=== PATIENT | female | born 1930 | race African-American/Black ===

== ENCOUNTER 2019-03-05 13:01 | Inpatient (IN) | payer MEDICARE, BC ==
[~2019-03-05] VITALS: Ht 160 cm; Wt 52.2 kg
[~2019-03-05 13:01] MED LIST: ASPIRIN PO; ATENOLOL PO; BENAZEPRIL; CINACALCET; CITRIC ACID; CLONIDINE; DOCUSATE PO; FAMOTIDINE; FERROUS SULFATE; HYDRALAZINE PO; NEPHRO VITE PO; NIFEDIPINE; QUETIAPINE; VIT B
[2019-03-05] MEDS ORDERED: MORPHINE SULFATE 4 MG/ML CPJ (NOT FOR IM USE) IV STA (16:06)
[2019-03-05] MEDS ORDERED: SODIUM CHLORIDE 0.9% 1,000 ML IV ONE (16:06)
[2019-03-05] MEDS ORDERED: ONDANSETRON HCL 4MG/2ML INJ IV STA (16:06)
[2019-03-05 16:17] LABS: CLARITY URINE CLEAR (CLEAR); COLOR URINE YELLOW (YELLOW); KETONES URINE NEGATIVE (NEGATIVE); LEUKOCYTE ESTERASE URINE 3+ (NEGATIVE); NITRITE URINE NEGATIVE (NEGATIVE); OCCULT BLOOD URINE NEGATIVE (NEGATIVE); PH URINE 5.5 (4.5-8.0); PROTEIN URINE NEGATIVE (NEGATIVE); SPECIFIC GRAVITY URINE 1.007 (1.005-1.030); UROBILINOGEN URINE 0.2 E.U./dL (0.2-1.0)
[2019-03-05 16:42] LABS: HEMATOCRIT. 33.2 % (36.0-48.0); HEMOGLOBIN. 10.7 g/dL (12.0-16.0); MEAN CORPUSCULAR HEMOGLOBIN 25.7 pg (28.0-32.0); MEAN CORPUSCULAR VOLUME 79.7 fL (81.0-99.0); MEAN PLATELET VOLUME 8.6 fl (7.4-10.4); PLATELET 220 x1000/uL (130-400); RED BLOOD CELL COUNT 4.17 mill/uL (4.2-5.4); RED CELL DISTRIBUTION WIDTH 16.8 % (11.6-14.6)
[2019-03-05 16:46] LABS: CHLORIDE 111 mEq/L (98-107)
[2019-03-05] MEDS ORDERED: CEFTRIAXONE 1 G PREMIX 50 ML IV ONE (17:00)
[2019-03-05 17:48] LABS: PLATELET ESTIMATE NORMAL
[2019-03-05] MEDS ORDERED: ACETAMINOPHEN 325MG TABLET PO PRN (22:45)
[2019-03-05] MEDS ORDERED: CLONIDINE 0.1MG TABLET PO PRN (22:45)
[2019-03-05] MEDS ORDERED: DOCUSATE SODIUM 100MG CAPSULE PO PRN (22:45)
[2019-03-05] MEDS ORDERED: ONDANSETRON HCL 4MG/2ML INJ IV PRN (22:45)
[2019-03-05] MEDS ORDERED: MORPHINE SULFATE 2 MG/ML CPJ (NOT FOR IM USE) IV PRN (22:45)
[2019-03-05] MEDS ORDERED: MAGNESIUM/ALUMINUM HYDROXIDE/SIMETHICONE 30ML UDC PO PRN (22:45)
[2019-03-05] MEDS ORDERED: DIPHENHYDRAMINE 50MG/ML VIAL IV PRN (22:45)
[2019-03-06] VITALS (7 sets, daily range): BP systolic 121–163; BP diastolic 43–74
[2019-03-06] MEDS: PANTOPRAZOLE SODIUM 40 MG/VIAL IV SCH ×3 (00:13→13:00)
[2019-03-06 06:53] LABS: BASOPHILS % 0.7 % (0.0-2.0); EOSINOPHILS % 14.2 % (0.0-5.0); HEMATOCRIT. 28.2 % (36.0-48.0); HEMOGLOBIN. 9.1 g/dL (12.0-16.0); LYMPHOCYTES % 14.1 % (20.0-50.0); MEAN CORPUSCULAR VOLUME 80.6 fL (81.0-99.0); MEAN PLATELET VOLUME 8.8 fl (7.4-10.4); MONOCYTES % 7.8 % (2.0-8.0); NEUTROPHILS % 63.2 % (40.0-76.0); PLATELET 194 x1000/uL (130-400); RED BLOOD CELL COUNT 3.49 mill/uL (4.2-5.4); RED CELL DISTRIBUTION WIDTH 17.1 % (11.6-14.6)
[2019-03-06 08:07] LABS: CHLORIDE 113 mEq/L (98-107)
[2019-03-06] MEDS: AMLODIPINE 10MG TABLET PO SCH (09:00)
[2019-03-06] MEDS ORDERED: QUETIAPINE FUMARATE 25MG TABLET PO SCH (13:00)
[2019-03-06] MEDS ORDERED: CITR473S4 PO (13:19)
[2019-03-06] MEDS ORDERED: NON (13:19)
[2019-03-06] MEDS ORDERED: METO-396 PO (13:19)
[2019-03-06] MEDS ORDERED: FLUT15.88 BOTHNSTRLS (13:19)
[2019-03-06] MEDS ORDERED: CINA60 MT (13:19)
[2019-03-06] MEDS ORDERED: REN800 PO (13:19)
[2019-03-06] MEDS ORDERED: ASCO500C15 MT (13:19)
[2019-03-06] MEDS ORDERED: CALC-769 PO (13:19)
[2019-03-06] MEDS ORDERED: HYDR-4134 MT (13:19)
[2019-03-06] MEDS ORDERED: THIA50TA11 PO (13:19)
[2019-03-06] MEDS ORDERED: LACT1CAP68 PO (13:19)
[2019-03-06] MEDS ORDERED: QUET25TA PO (13:19)
[2019-03-06] MEDS ORDERED: AMLO2.5T45 PO (13:19)
[2019-03-06] MEDS ORDERED: OMEP40CA34 MT (13:19)
[2019-03-06] MEDS ORDERED: SYSOS BOTHEYE (13:19)
[2019-03-06] MEDS ORDERED: CEFTRIAXONE 1 G PREMIX 50 ML IV SCH ×2 (17:00→20:00)
[2019-03-06] MEDS: QUETIAPINE FUMARATE 25MG TABLET PO SCH (21:11)
[2019-03-06] MEDS: HYDRALAZINE HCL 25MG TABLET PO SCH (21:12)
[2019-03-07 00:15] VITALS: BP 141/49
[2019-03-07 04:00] VITALS: BP 138/51
[2019-03-07 06:14] LABS: CHLORIDE 106 mEq/L (98-107)
[2019-03-07 06:18] LABS: HEMATOCRIT. 27.3 % (36.0-48.0); MEAN CORPUSCULAR HEMOGLOBIN 25.9 pg (28.0-32.0); MEAN CORPUSCULAR VOLUME 78.4 fL (81.0-99.0); MEAN PLATELET VOLUME 8.7 fl (7.4-10.4); PLATELET 191 x1000/uL (130-400); RED BLOOD CELL COUNT 3.48 mill/uL (4.2-5.4); RED CELL DISTRIBUTION WIDTH 16.4 % (11.6-14.6)
[2019-03-07] MEDS: AMLODIPINE 10MG TABLET PO SCH (09:11)
[2019-03-07] MEDS: HYDRALAZINE HCL 25MG TABLET PO SCH (09:11)
[2019-03-07] MEDS: PANTOPRAZOLE SODIUM 40 MG/VIAL IV SCH (09:12)
[2019-03-07] MEDS: QUETIAPINE FUMARATE 25MG TABLET PO SCH (09:12)
[2019-03-07 13:19] LABS: PLATELET ESTIMATE NORMAL
[2019-03-07 13:37] VITALS: BP 132/74
== END 2019-03-07 16:28 | disposition home or self-care (01) | DRG 438 ==
LOC: ER 13:01 → 6WST 18:35 → ENRESERV 22:24 → SUPCPDRO 22:42
PROVIDERS: ADMIT Hospitalist; ATTEND Hospitalist
PROC: 5A1D70Z Performance of Urinary Filtration, Intermittent, Less than 6 Hours Per Day (ICD-10-PCS; principal; 2019-03-06)
DX: K85.90 Acute pancreatitis without necrosis or infection, unspecified (principal); I50.33 Acute on chronic diastolic (congestive) heart failure; N18.6 End stage renal disease; I13.2 Hypertensive heart and chronic kidney disease with heart failure and with stage 5 chronic kidney disease, or end stage renal disease; N39.0 Urinary tract infection, site not specified; E03.9 Hypothyroidism, unspecified; E21.3 Hyperparathyroidism, unspecified; Z85.3 Personal history of malignant neoplasm of breast; Z82.49 Family history of ischemic heart disease and other diseases of the circulatory system; Z85.828 Personal history of other malignant neoplasm of skin; Z88.8 Allergy status to other drugs, medicaments and biological substances; Z90.710 Acquired absence of both cervix and uterus; Z99.2 Dependence on renal dialysis; Z88.7 Allergy status to serum and vaccine; Z79.899 Other long term (current) drug therapy
CPT/HCPCS: 36415; 71045; 74176; 81003; 93005; 93970; 99285; C9113; J0696; J2270; J2405; J7030

== ENCOUNTER 2019-03-22 15:02 | Emergency (ER) | payer BC, MEDICARE ==
[~2019-03-22] VITALS: Ht 157.5 cm; Wt 50.0 kg
[~2019-03-22 15:02] MED LIST changes: +AMLO2.5T45 PO; +ASCO500C15 MT; -ATENOLOL PO; -BENAZEPRIL; +CALC-769 PO; +CINA60 MT; +CITR473S4 PO; -CITRIC ACID; -CLONIDINE; -FAMOTIDINE; -FERROUS SULFATE; +FLUT15.88 BOTHNSTRLS; +HYDR-4134 MT; +LACT1CAP68 PO; +METO-396 PO; -NEPHRO VITE PO; -NIFEDIPINE; +OMEP40CA34 MT; +QUET25TA PO; -QUETIAPINE; +REN800 PO; +SYSOS BOTHEYE; +THIA50TA11 PO; -VIT B
[2019-03-22 15:13] VITALS: BP 168/67
== END 2019-03-22 17:21 | disposition left against medical advice (07) ==
LOC: ER 15:02
DX: Z53.21 Procedure and treatment not carried out due to patient leaving prior to being seen by health care provider (principal)

== ENCOUNTER 2019-07-25 09:29 | Emergency (ER) | payer BC, MEDICARE ==
[~2019-07-25] VITALS: Ht 160 cm; Wt 59.0 kg
[~2019-07-25 09:29] MED LIST changes: +FLUT15.844 BOTHNSTRLS; -FLUT15.88 BOTHNSTRLS; +OMEP40CA12 MT; -OMEP40CA34 MT
[2019-07-25 11:36] VITALS: BP 143/64
== END 2019-07-25 11:39 | disposition home or self-care (01) ==
LOC: ER 09:29
DX: H10.023 Other mucopurulent conjunctivitis, bilateral (principal); I12.0 Hypertensive chronic kidney disease with stage 5 chronic kidney disease or end stage renal disease; N18.6 End stage renal disease; K21.9 Gastro-esophageal reflux disease without esophagitis; Z99.2 Dependence on renal dialysis; Z79.82 Long term (current) use of aspirin; Z88.7 Allergy status to serum and vaccine
CPT/HCPCS: 99282

== ENCOUNTER 2020-02-06 18:18 | Inpatient (IN) | payer MEDICARE, BC ==
[~2020-02-06] VITALS: Ht 157.5 cm; Wt 47.3 kg
[2020-02-06 19:30] VITALS: BP 145/55
[2020-02-06 20:00] VITALS: BP 144/50
[2020-02-06] MEDS ORDERED: HYDRALAZINE 25 MG PO SCH (20:00)
[2020-02-06] MEDS ORDERED: ACETAMINOPHEN 500MG TABLET PO PRN (20:45)
[2020-02-06] MEDS ORDERED: QUETIAPINE FUMARATE 25MG TABLET PO SCH (21:30)
[2020-02-06] MEDS: HYDRALAZINE HCL 25MG TABLET PO SCH (22:10)
[2020-02-06] MEDS: CARVEDILOL 12.5MG TABLET PO SCH (22:11)
[2020-02-07] VITALS (7 sets, daily range): BP systolic 95–165; BP diastolic 45–69
[2020-02-07 00:53] LABS: BASOPHILS % 0.5 % (0.0-2.0); EOSINOPHILS % 9.3 % (0.0-5.0); LYMPHOCYTES % 14.1 % (20.0-50.0); MEAN CORPUSCULAR HEMOGLOBIN 28.1 pg (28.0-32.0); MEAN CORPUSCULAR VOLUME 85.4 fL (81.0-99.0); MONOCYTES % 6.9 % (2.0-8.0); NEUTROPHILS % 69.2 % (40.0-76.0); PLATELET 187 x1000/uL (130-400); RED BLOOD CELL COUNT 2.39 mill/uL (4.2-5.4); RED CELL DISTRIBUTION WIDTH 17.8 % (11.6-14.6)
[2020-02-07 01:05] LABS: HEMATOCRIT. 20.4 % (36.0-48.0); HEMOGLOBIN. 6.7 g/dL (12.0-16.0)
[2020-02-07] MEDS ORDERED: PROPYLENE GLYCOL/PEG 400 OPTH DROPS BOTHEYE PRN (04:30)
[2020-02-07 06:17] LABS: BASOPHILS % 0.9 % (0.0-2.0); EOSINOPHILS % 10.4 % (0.0-5.0); HEMATOCRIT. 21.7 % (36.0-48.0); HEMOGLOBIN. 7.1 g/dL (12.0-16.0); LYMPHOCYTES % 14.3 % (20.0-50.0); MEAN CORPUSCULAR HEMOGLOBIN 28.2 pg (28.0-32.0); MEAN CORPUSCULAR VOLUME 85.8 fL (81.0-99.0); MEAN PLATELET VOLUME 8.3 fl (7.4-10.4); MONOCYTES % 8.6 % (2.0-8.0); NEUTROPHILS % 65.8 % (40.0-76.0); PLATELET 189 x1000/uL (130-400); RED BLOOD CELL COUNT 2.53 mill/uL (4.2-5.4); RED CELL DISTRIBUTION WIDTH 17.8 % (11.6-14.6)
[2020-02-07] MEDS ORDERED: OMEPRAZOLE PO SCH (07:00)
[2020-02-07] MEDS ORDERED: OMEPRAZOLE 20MG CAPSULE EXTENDED RELEASE PO SCH (07:20)
[2020-02-07] MEDS: CARVEDILOL 12.5MG TABLET PO SCH (08:57)
[2020-02-07] MEDS: SEVELAMER CARBONATE 800 MG TABLET PO SCH ×2 (08:57→12:03)
[2020-02-07] MEDS ORDERED: THIAMINE HCL 100MG TABLET PO SCH (09:00)
[2020-02-07] MEDS ORDERED: CALCIUM CARBONATE/VITAMIN D3 500MG TABLET PO SCH (09:00)
[2020-02-07] MEDS ORDERED: MEDICATION NOT ON FORMULARY EA (Metoprolol Succinate 25 MG) PO SCH (09:00)
[2020-02-07] MEDS ORDERED: DOCUSATE SODIUM 100MG CAPSULE PO SCH (09:00)
[2020-02-07] MEDS ORDERED: ASPIRIN 81MG EC TABLET PO SCH (09:00)
[2020-02-07] MEDS ORDERED: FLUTICASONE PROPIONATE 50MCG/SPRAY BOTTLE BOTHNSTRLS SCH (09:00)
[2020-02-07] MEDS ORDERED: CITRIC ACID/SODIUM CITRATE SOLN 15ML UDC PO SCH (09:00)
[2020-02-07] MEDS ORDERED: CINACALCET HCL 60MG TABLET PO SCH (09:00)
[2020-02-07] MEDS ORDERED: HYDRALAZINE HCL 25MG TABLET PO SCH ×2 (09:00→21:00)
[2020-02-07 09:59] LABS: BASOPHILS % 0.9 % (0.0-2.0); EOSINOPHILS % 9.7 % (0.0-5.0); HEMATOCRIT. 29.2 % (36.0-48.0); HEMOGLOBIN. 9.7 g/dL (12.0-16.0); LYMPHOCYTES % 16.4 % (20.0-50.0); MEAN CORPUSCULAR HEMOGLOBIN 28.5 pg (28.0-32.0); MEAN PLATELET VOLUME 8.4 fl (7.4-10.4); MONOCYTES % 6.5 % (2.0-8.0); NEUTROPHILS % 66.5 % (40.0-76.0); PLATELET 199 x1000/uL (130-400)
[2020-02-07 10:09] LABS: PROTHROMBIN TIME 10.5 sec (9.6-11.0)
[2020-02-07] MEDS: HYDRALAZINE HCL 25MG TABLET PO SCH (13:26)
[2020-02-07] MEDS ORDERED: EPOETIN ALFA 4000UNITS/ML VIAL SUBCUT NR (14:00)
[2020-02-07] MEDS ORDERED: CINACALCET HCL 90MG TABLET PO SCH (17:00)
[2020-02-07] MEDS ORDERED: AMLODIPINE 5MG TABLET PO SCH (17:00)
[2020-02-07] MEDS ORDERED: AMLODIPINE 2.5MG TABLET PO SCH (18:00)
== END 2020-02-07 14:25 | disposition home or self-care (01) | DRG 811 ==
LOC: 6EST 18:18
PROVIDERS: ADMIT Internal Medicine Nephrology; ATTEND Internal Medicine Nephrology
PROC: 30233N1 Transfusion of Nonautologous Red Blood Cells into Peripheral Vein, Percutaneous Approach (ICD-10-PCS; principal; 2020-02-07)
PROC: 5A1D70Z Performance of Urinary Filtration, Intermittent, Less than 6 Hours Per Day (ICD-10-PCS; 2020-02-07)
DX: D50.0 Iron deficiency anemia secondary to blood loss (chronic) (principal); N18.6 End stage renal disease; I12.0 Hypertensive chronic kidney disease with stage 5 chronic kidney disease or end stage renal disease; R73.9 Hyperglycemia, unspecified; E21.3 Hyperparathyroidism, unspecified; Z85.3 Personal history of malignant neoplasm of breast; Z90.12 Acquired absence of left breast and nipple; Z90.710 Acquired absence of both cervix and uterus
CPT/HCPCS: 36415; 80048; 85025; 86850; 86900; 86920; J0885; P9016

== ENCOUNTER 2020-12-17 12:18 | Emergency (ER) | payer MEDICARE, BC ==
[~2020-12-17] VITALS: Ht 162.6 cm; Wt 46.0 kg
[~2020-12-17 12:18] MED LIST changes: -METO-396 PO; -THIA50TA11 PO; +THIA50TA12 PO
[2020-12-17] MEDS ORDERED: MAGNESIUM/ALUMINUM HYDROXIDE/SIMETHICONE 30ML UDC PO ONE (13:00)
[2020-12-17] MEDS ORDERED: GLUCAGON,HUMAN RECOMBINANT 1MG/VIAL IV ONE (13:00)
[2020-12-17 15:39] VITALS: BP 148/58
== END 2020-12-17 16:00 | disposition home or self-care (01) ==
LOC: ER 12:18
DX: T18.108A Unspecified foreign body in esophagus causing other injury, initial encounter (principal); I12.0 Hypertensive chronic kidney disease with stage 5 chronic kidney disease or end stage renal disease; N18.6 End stage renal disease; Z99.2 Dependence on renal dialysis; Z79.82 Long term (current) use of aspirin; Z88.8 Allergy status to other drugs, medicaments and biological substances; X58.XXXA Exposure to other specified factors, initial encounter; Y93.89 Activity, other specified; Y92.89 Other specified places as the place of occurrence of the external cause; Y99.8 Other external cause status
CPT/HCPCS: 96374; 99283; J1610